=== PATIENT | female | born 1970 | race Caucasian/White ===

== ENCOUNTER 2017-06-17 15:23 | Emergency (ER) | payer BC ==
--- NOTE | 2017-06-17 16:08 | ERPHSYRPT ---
- History of Present Illness Time Seen by Provider: 06/17/17 15:50 Source: patient Patient Subjective Stated Complaint: blood sugar running high at home. is being followed by family md and has appt next week. sugar was elevated today and she called md. was instructed to come to er for eval. also c/o valentine for two weeks Triage Nursing Assessment: ambulated to room per self. skin w/d, color normal, resp easy. denies any other c/o except for headache and elevated blood sugar. Physician History: CC: high blood sugar Hx: 46 y/o patient of TIFFANIE Ortega. She has recent headaches. She checked accu check this week and it was elevated. IT has ran anywhere from 200-400 this week. Today it was 400 so she called the office and came to ER. She has never been treated for DM. No fever, chills. No chest or abd pain. 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 Timing/Duration: day(s) (few) Home Medications: Chlorthalidone 25 mg PO 06/17/17 [History] Potassium Chloride 20 Meq [Klor-Con 20 MEQ] 20 meq PO BID 06/17/17 [History] Hx Tetanus, Diphtheria Vaccination/Date Given: No Hx Influenza Vaccination/Date Given: No Hx Pneumococcal Vaccination/Date Given: No - Review of Systems Constitutional: Malaise, No Fever, No Chills Eyes: Vision Changes Ears, Nose, & Throat: No Symptoms Respiratory: No Cough, No Dyspnea Cardiac: No Chest Pain Abdominal/Gastrointestinal: No Abdominal Pain, No Nausea, No Vomiting, No Diarrhea Musculoskeletal: No Symptoms Skin: No Symptoms Neurological: No Symptoms All Other Systems: Reviewed and Negative - Past Medical History Pertinent Past Medical History: Yes Cardiac History: Arrhythmia Endocrine Medical History: Diabetes Type II Musculoskeletal History: Fibromyalgia GI Medical History: Irritable Bowel History: Other Female Reproductive Disorders: Abnormal Uterine Bleeding 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, 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 - Past Surgical History Past Surgical History: Yes Musculoskeletal: Orthopedic Surgery Female Surgical History: Tubal Ligation, Other Other Surgical History: ablation, orif left foot - Social History Smoking Status: Never smoker Exposure to second hand smoke: No Drug Use: none Patient Lives Alone: No - Nursing Vital Signs Nursing Vital Signs: Initial Vital Signs Temperature 97.7 F 06/17/17 15:47 Pulse Rate 93 H 06/17/17 15:47 Respiratory Rate 18 06/17/17 15:47 Blood Pressure 135/78 06/17/17 15:47 O2 Sat by Pulse Oximetry 97 06/17/17 15:47 Pain Scale Pain Intensity 2 - Physical Exam General Appearance: alert Eye Exam: PERRL/EOMI Ears, Nose, Throat Exam: normal ENT inspection, moist mucous membranes Neck Exam: normal inspection, non-tender, supple Respiratory Exam: normal breath sounds Cardiovascular Exam: regular rate/rhythm Gastrointestinal/Abdomen Exam: soft, No tenderness, No distention Extremity Exam: normal inspection, normal range of motion Neurologic Exam: alert, oriented x 3, cooperative, nurse practitioner per diem II-XII nml as tested, sensation nml, No motor deficits Skin Exam: warm, dry, No rash SpO2 Interpretation: normal SpO2: 97 Oxygen Delivery: Room Air - Course Nursing assessment & vital signs reviewed: Yes Ordered Tests: Active Orders 24 hr Category Date Time Status Clean Catch Urine Specimen STAT Care 06/17/17 16:05 Active BMP Stat Lab 06/17/17 16:15 Completed CULTURE,URINE Stat Lab 06/17/17 16:05 Received UA W/ MICROSCOPIC Stat Lab 06/17/17 16:05 Completed VENOUS BLOOD GAS Urgent Lab 06/17/17 16:08 Completed Medication Summary Discontinued Medications Generic Name Dose Route Start Last Admin Trade Name Teresa PRN Reason Stop Dose Admin Potassium Bicarbonate 50 meq 06/17/17 16:42 06/17/17 16:48 K-Lyte 25 Meq PO 06/17/17 16:43 50 meq STAT ONE Administration Potassium Bicarbonate Confirm 06/17/17 16:45 K-Lyte 25 Meq Administered 06/17/17 16:46 Dose 50 meq .ROUTE .STK-MED ONE Lab/Rad Data: Laboratory Result Diagrams 06/17/17 16:15 Laboratory Results 06/17/17 06/17/17 06/17/17 Range/Units 16:15 16:08 16:05 VBG pH 7.49 H (7.32-7.42) VBG pCO2 at Pat Temp 39 L (42-55) mm/Hg VBG pO2 at Pat Temp 56 H (25-40) mm/Hg VBG HCO3 29.7 H* (22-28) meq/L VBG O2 Sat (Prema) 92.5 L (95-100) VBG Base Excess 5.9 H (-2.0-2.0) VBG Hemoglobin 14.2 VBG Carboxyhemoglobin 2.3 (0.0-6.9) % T HGB POC Potassium 2.9 L* (3.5-5.1) Sodium 133 L (136-145) mEq/L Potassium 2.8 L* (3.5-5.1) mEq/L Chloride 97 L (98-107) mEq/L Carbon Dioxide 27.1 (21-32) mEq/L Anion Gap 12.2 (5-15) MEQ/L BUN 14 (9-20) mg/dL Creatinine 0.81 (0.55-1.30) mg/dl Estimated GFR > 60 ML/MIN Glucose 235 H (70-110) MG/DL Calcium 9.2 (8.5-10.1) mg/dL Ur Collection Type VOID Urine Color YELLOW (YELLOW) Urine Appearance HAZY (CLEAR) Urine pH 5.0 (5-6) Ur Specific Winston 1.020 (1.005-1.025) Urine Protein NEGATIVE (Negative) Urine Ketones MODERATE (NEGATIVE) Urine Blood NEGATIVE (0-5) Kurt/ul Urine Nitrite NEGATIVE (NEGATIVE) Urine Bilirubin NEGATIVE (NEGATIVE) Urine Urobilinogen NORMAL (0-1) mg/dL Ur Leukocyte Esterase NEGATIVE (NEGATIVE) Urine Microscopic WBC 2-5 (0-5) /HPF Ur Epithelial Cells MANY (FEW) /HPF Urine Bacteria MODERATE (NEGATIVE) /HPF Urine Culture Reflexed YES (NO) Urine Glucose 1000 (NEGATIVE) mg/dL Specimen Received 06/17/17 1640 - Progress Progress Note: 06/17/17 16:21 Called [facility] office and spoke to covering [employer] CLERK Kathie Boss who advised started metformin. Pt was worried about risk of stroke with metformin but agrees to try it and follow up with [facility] Or[facility]. 06/17/17 16:55 Po K given. She is on 20 BID. Advisd to double. A1C pending. She has appt for Tuesday. Counseled pt/family regarding: lab results, diagnosis, need for follow-up - Departure Time of Disposition: 16:55 Departure Disposition: Home Clinical Impression: Hyperglycemia due to type 2 diabetes mellitus, Hypokalemia Condition: Stable Critical Care Time: No Referrals: TAMY ORTEGA NP [Primary Care Provider] - Instructions: Hyperglycemia -- Adult Additional Instructions: Rx metformin. Double your Potassium. See [facility] Ortega Tuesday as scheduled. Record blood sugar four times a day. Prescriptions: Metformin HCl 500 mg [Glucophage 500 MG] 500 mg PO BIDWM #30 tablet
[2017-06-17 16:19] LABS: VBG BASE EXCESS 5.9 (-2.0-2.0); VBG CARBOXYHEMOGLOBIN 2.3 % T HGB (0.0-6.9); VBG HCO3- 29.7 meq/L (22-28); VBG HEMOGLOBIN 14.2; VBG O2 SATURATION 92.5 (95-100); VBG pH 7.49 (7.32-7.42)
[2017-06-17 16:21] LABS: VBG POTASSIUM 2.9 (3.5-5.1)
[2017-06-17 16:39] LABS: ANION GAP 12.2 MEQ/L (5-15); BLOOD UREA NITROGEN 14 mg/dL (9-20); CHLORIDE 97 mEq/L (98-107); Carbon Dioxide 27.1 mEq/L (21-32); Glucose 235 MG/DL (70-110); SODIUM 133 mEq/L (136-145)
[2017-06-17 16:41] LABS: Potassium 2.8 mEq/L (3.5-5.1)
[2017-06-17] MEDS ORDERED: K-LYTE 25 MEQ PO ONE (16:42)
[2017-06-17] MEDS ORDERED: K-LYTE 25 MEQ ONE (16:45)
[2017-06-17 16:47] LABS: Collection Type VOID; Leukocyte Esterase NEGATIVE (NEGATIVE)
[2017-06-17 16:48] LABS: ADD URINE CULTURE? YES (NO); Bacteria MODERATE /HPF (NEGATIVE); Bilirubin NEGATIVE (NEGATIVE); Blood NEGATIVE Ery/ul (0-5); COMPLETE URINE MICROSCOPIC? YES; Epithelial Cells MANY /HPF (FEW); Glucose 1000 mg/dL (NEGATIVE)
[2017-06-17 16:57] VITALS: O2SAT 97
[2017-06-17 16:59] VITALS: BP 127/79; PULSE 78
== END 2017-06-17 17:10 | disposition home or self-care (01) ==
LOC: ED 15:23
DX: E11.65 Type 2 diabetes mellitus with hyperglycemia (principal); E87.6 Hypokalemia; Z79.899 Other long term (current) drug therapy
CPT/HCPCS: 36415; 80048; 81000; 82805; 83036; 87086; 99283; A9270-GY

== ENCOUNTER 2018-08-11 16:18 | Emergency (ER) | payer BC ==
[2018-08-11 16:37] VITALS: O2SAT 99
[2018-08-11] MEDS ORDERED: NORCO 5/325 MG PO ONE (16:43)
[2018-08-11] MEDS ORDERED: NORCO 5/325 MG ONE (16:51)
--- NOTE | 2018-08-11 17:00 | ERPHSYRPT ---
- History of Present Illness Time Seen by Provider: 08/11/18 16:40 Source: patient Exam Limitations: clinical condition Patient Subjective Stated Complaint: pt reports she fell approx 1545 taking trash out at work, states she failed to see a hole covered in leaves and accidentally stepped in it, twisting her ankle. pt reports she heard a pop. pt reports scraping her left elbow but denies any other injuries. Triage Nursing Assessment: pt is aox3, pupils perrl, afebrile, resps easy and non labored, radial pulses strong and equal, skin is pink warm dry. swelling noted to the left lateral ankle. sensation and ROM intact. pedal pulse strong and regular. Physician History: PATIENT TAKING OUT TRASH AT WORK, STEPPED IN HOLE TWISTED LEFT FOOT AND COMPLAINS OF SEVERE PAIN. UNABLE TO BEAR WEIGHT, HAS SWELLING OVER OUTER ASPECT OF LEFT FOOT, DENIES BRUISING OR DEFORMITY. Method of Injury: fell Occurred: just prior to arrival Quality: constant Severity of Pain-Max: moderate Severity of Pain-Current: moderate Lower Extremities Pain: foot: left, ankle: left Modifying Factors: Improves With: movement Associated Symptoms: unable to bear weight Allergies/Adverse Reactions: esomeprazole [From Nexium] Allergy (Verified 08/11/18 16:57) Penicillins Allergy (Verified 08/11/18 16:46) Home Medications: Chlorthalidone 25 mg PO 06/17/17 [History] Potassium Chloride 20 Meq [Klor-Con 20 MEQ] 20 meq PO BID 06/17/17 [History] Hx Tetanus, Diphtheria Vaccination/Date Given: Yes Hx Influenza Vaccination/Date Given: Yes Hx Pneumococcal Vaccination/Date Given: No Immunizations Up to Date: Yes - Review of Systems Musculoskeletal: Injury, Joint Pain, Joint Swelling Neurological: No Symptoms Psychological: No Symptoms - Past Medical History Pertinent Past Medical History: Yes Cardiac History: Arrhythmia Endocrine Medical History: Diabetes Type II Musculoskeletal History: Fibromyalgia GI Medical History: Irritable Bowel History: Other Female Reproductive Disorders: Abnormal Uterine Bleeding 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, 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 - Past Surgical History Past Surgical History: Yes Musculoskeletal: Orthopedic Surgery Female Surgical History: Tubal Ligation, Other Other Surgical History: ablation, orif left foot - Social History Smoking Status: Never smoker Exposure to second hand smoke: No Drug Use: none Patient Lives Alone: No - Female History Hx Last Menstrual Period: 2004, ablation Hx Now: No - Nursing Vital Signs Nursing Vital Signs: Initial Vital Signs Temperature 98.0 F 08/11/18 16:28 Pulse Rate 80 08/11/18 16:28 Respiratory Rate 18 08/11/18 16:28 Blood Pressure 137/90 08/11/18 16:28 O2 Sat by Pulse Oximetry 99 08/11/18 16:28 Pain Scale Pain Intensity 5 - Physical Exam General Appearance: mild distress Ankle Exam: left ankle: limited range of motion, pain, soft tissue tenderness, swelling (ANTERIOR ASPECT OF LATERAL MALLEOLUS, NO JOINT LAXITY), bilateral ankle: normal inspection Foot Exam: left foot: soft tissue tenderness (OVER PROXIMAL LEFT LATERAL FOOT PROXIMAL 4TH TO 5TH METATARSALS, NO ECCHYMOSIS.), swelling SpO2 Interpretation: normal SpO2: 99 Oxygen Delivery: Room Air - Radiology Exams Left Foot X-ray Interpretation: Interpreted by me, Negative, No Fracture Left Ankle X-ray Interpretation: Interpreted by me, Negative, No Fracture Ordered Tests: Active Orders 24 hr Category Date Time Status Crutches STAT Care 08/11/18 17:09 Active Splint STAT Care 08/11/18 17:08 Active ANKLE (3 VIEWS) Stat Exams 08/11/18 16:45 Taken FOOT (MINIMUM 3 VIEWS) Stat Exams 08/11/18 16:44 Taken Medication Summary Discontinued Medications Generic Name Dose Route Start Last Admin Trade Name Teresa PRN Reason Stop Dose Admin Hydrocodone Bitart/Acetaminophen 1 tab 08/11/18 16:43 08/11/18 16:56 [place] 5/325 Mg PO 08/11/18 16:44 1 tab STAT ONE Administration Hydrocodone Bitart/Acetaminophen Confirm 08/11/18 16:51 [place] 5/325 Mg Administered 08/11/18 16:52 Dose 1 tab .ROUTE .STK-MED ONE - Progress Progress: pain not gone completely Progress Note: 08/11/18 17:23 APPLICATION ORTHOGLASS SPLINT TO LEFT LOWER LEG AND FOOT, FITTED FOR CRUTCHES, Counseled pt/family regarding: diagnosis, need for follow-up, rad results - Departure Time of Disposition: 17:32 Departure Disposition: Home Clinical Impression: CONTUSION/STRAIN LEFT FOOT AND ANKLE Condition: Stable Critical Care Time: No Referrals: TAMY ORTEGA NP [Primary Care Provider] - Additional Instructions: AMBULATE USING CRUTCHES NONWEIGHT BEARING LEFT FOR 4-5 DAYS. ELEVATE YOUR FOOT AND APPLY ICE OVER FOOT SWELLING EVERY 4 HOURS, 30 MINUTES FOR 48 HOURS. NORCO 10/325, 1/2 TABLET EVERY 4-6 HOURS NEEDED. REMOVE SPLINT AFTER 4 DAYS. CONSULT YOUR PRIMARY CARE PROVIDER FOR FOLLOWUP. Prescriptions: Hydrocodone/APAP 10/325 mg [[place] 10/325 MG Tablet] 1 tab PO Q6H PRN PRN # 10 tablet MDD 4 PRN Reason: Pain
[2018-08-11 18:03] VITALS: BP 131/87; PULSE 116
--- NOTE | 2018-08-14 10:23 | XRAY ---
Indication: Lateral pain following injury. Comparison: None 3 nonweightbearing views of the left foot demonstrates intact orthopedic screw base of the 5th metatarsal and tiny cuboid/talonavicular accessory ossicles. No other bony, articular, or soft tissue abnormalities.
--- NOTE | 2018-08-14 10:24 | XRAY ---
Indication: Lateral pain following injury. Comparison: None 3 views of the left ankle demonstrates navicular spurring and orthopedic screw base of the 5th metatarsal. No other bony, articular, or soft tissue abnormalities.
== END 2018-08-11 17:45 | disposition home or self-care (01) ==
LOC: ED 16:18
DX: S96.912A Strain of unspecified muscle and tendon at ankle and foot level, left foot, initial encounter (principal); S90.32XA Contusion of left foot, initial encounter; X50.1XXA Overexertion from prolonged static or awkward postures, initial encounter; Y93.H9 Activity, other involving exterior property and land maintenance, building and construction; Y92.129 Unspecified place in nursing home as the place of occurrence of the external cause; Y99.0 Civilian activity done for income or pay
CPT/HCPCS: 29515; 73610; 73630; 99283; A9270-GY